=== PATIENT | female | born 1970 | race Caucasian/White ===

== ENCOUNTER 2023-07-05 07:30 | Day surgery (SDC) | payer OTHER, SELFPAY ==
[2023-05-28 10:52] VITALS: BMI 38.8
[2023-06-19 09:57] VITALS: BMI 38.7
[2023-07-05 08:37] VITALS: BP 137/92; PULSE 78; RESP 16; TEMP 36.6; O2SAT 100; BMI 37.8
--- NOTE | 2023-07-05 08:47 | PM.HPGS ---
History of Present Illness History of Present Illness Consent: Risks, benefits, and alternatives have been discussed and questions answered. Patient agrees to proceed with procedure. Chief complaint: Neoplasm Screening Narrative: Ijeoma Davidson is a 52 year old female presents for screening colonoscopy. Patient's current weight appetite and bowel movements are normal. Patient denies abdominal pain. Family history is significant her father had colon polyps. Review of Systems Review of Systems: Review of systems noncontributory. [facility] Past Medical History Medical History (Updated 07/05/23 @ 08:49 by Patrick Hobbs MD) Cramping of hands Dyslipidemia Ecchymosis Edema Ganglion cyst Meningioma Surgical History Surgical History (Updated 05/25/23 @ 08:52 by Julia Duarte PA-C) History of History of foot surgery right 2020 History of myomectomy Family History Family History Mother Diabetes mellitus Hypertension Cerebrovascular accident Sibling Hypertension Grandparent Colon cancer Social History Social History Smoking status: Never smoker Alcohol intake: current Drinks per week: 0 Alcohol use details: ONE A MONTH Substance use: never Substance use type: does not use Lack of Transportation: No Lack of Food: Never True Current Housing: I Have Housing Concerned About Future Housing: No Difficulty Paying Gas/Electric Bills: No Difficulty Paying for Meds: No Currently Unemployed: No Difficulty w/ Childcare or Family Care: No Living arrangements: with family Occupation/Education: occupation Gender identity (if verbalized by the patient): Female Sexual Orientation (if Verbalized by the Patient): Straight or Heterosexual Spiritual care concerns: No Meds Home Medications and Allergies Home Medications Medication Instructions Recorded Confirmed Type ascorbic acid (vitamin C) 250 mg 250 mg PO DAILY 03/13/22 07/05/23 History tablet cholecalciferol (vitamin D3) 50 50 mcg PO DAILY 03/13/22 07/05/23 History mcg (2,000 unit) capsule mecobalamin (vitamin B12) 1,000 2,000 mcg PO DAILY 03/13/22 07/05/23 History mcg chewable tablet fenofibric acid (choline) 135 mg 135 mg PO QHS #90 caps 01/26/24 03/07/24 Rx capsule,delayed release (Trilipix) omeprazole 20 mg capsule,delayed 20 mg PO DAILY #90 caps 05/25/23 07/05/23 Rx release furosemide 20 mg tablet (Lasix) 20 mg PO QAM PRN edema #90 tabs 06/18/23 07/05/23 Rx Allergies Allergy/AdvReac Type Severity Reaction Status Date / Time No Known Allergies Allergy Mild Verified 07/05/23 08:32 Vital Signs Vital Signs - 24 hr 07/05/23 08:37 Temperature 97.8 F Pulse Rate 78 Respiratory Rate 16 Blood Pressure 137/92 H Pulse Oximetry 100 Oxygen Delivery Room Air Exam Narrative: Physical exam reveals patient to be alert. Vital signs stable. HEENT exam is unremarkable. Patient is anicteric. Lungs are clear to auscultation and percussion. Heart is without murmur or extra sounds. Abdomen bowel sounds are present soft nontender with no hepatosplenomegaly. Digital external rectal exam is normal. Assessment and Plan Assessment and plan (1) Encounter for screening colonoscopy: Code(s): Z12.11 - Encounter for screening for malignant neoplasm of colon Status: Acute Assessment and Plan: Neoplasia screening advised because of age. Further recommendations may be given after endoscopy. (2) Family history of colonic polyps: Code(s): Z83.719 - Family history of colon polyps, unspecified Status: Acute Assessment and Plan: Patient's father has colonoscopy at 5-7 year intervals given this history.
[2023-07-05] MEDS: LACTATED RINGERS 1,000 ML 150 ML IV CONT (08:51)
--- NOTE | 2023-07-05 08:59 | WPDANESEPPF ---
Anes - Initial Pre Proc Eval Procedure: Operation Date: 07/05/23 10:00 Proposed Procedures p Screening Colonoscopy - Patrick Hobbs MD Date/Time: 07/05/23 08:59 Surgeon: Patrick Hobbs MD Pre Op Diagnosis: Neoplasm Screening Patient Data Age: 52 Gender: F Height: 1.8 m Weight: 122.8 kg Last Vital Signs Temp 36.6 C 07/05/23 08:37 Pulse 78 07/05/23 08:37 Resp 16 07/05/23 08:37 BP 137/92 H 07/05/23 08:37 Pulse Ox 100 07/05/23 08:37 O2 Del Method Room Air 07/05/23 08:37 Allergies Allergy/AdvReac Type Severity Reaction Status Date / Time No Known Allergies Allergy Mild Verified 07/05/23 08:32 Home Medications Medication Instructions Recorded Confirmed Type ascorbic acid (vitamin C) 250 mg 250 mg PO DAILY 03/13/22 07/05/23 History tablet cholecalciferol (vitamin D3) 50 50 mcg PO DAILY 03/13/22 07/05/23 History mcg (2,000 unit) capsule mecobalamin (vitamin B12) 1,000 2,000 mcg PO DAILY 03/13/22 07/05/23 History mcg chewable tablet fenofibric acid (choline) 135 mg 135 mg PO QHS #90 caps 05/25/23 07/05/23 Rx capsule,delayed release (Trilipix) omeprazole 20 mg capsule,delayed 20 mg PO DAILY #90 caps 05/25/23 07/05/23 Rx release furosemide 20 mg tablet (Lasix) 20 mg PO QAM PRN edema #90 tabs 06/18/23 07/05/23 Rx Patient hx anesthesia problems: none Family hx anesthesia problems: none Results Review: All pre-operative results and documents have been reviewed as part of the pre-operative evaluation. [facility] Past Medical History Medical History (Updated 07/05/23 @ 08:59 by Ernie Douglas MD) Cramping of hands Dyslipidemia Ecchymosis Edema Ganglion cyst Hyperlipidemia Meningioma Obesity Surgical History Surgical History History of History of foot surgery right 2020 History of myomectomy Family History Family History Mother Diabetes mellitus Hypertension Cerebrovascular accident Sibling Hypertension Grandparent Colon cancer Social History Social History Smoking status: Never smoker Alcohol intake: current Drinks per week: 0 Alcohol use details: ONE A MONTH Substance use: never Substance use type: does not use Lack of Transportation: No Lack of Food: Never True Current Housing: I Have Housing Concerned About Future Housing: No Difficulty Paying Gas/Electric Bills: No Difficulty Paying for Meds: No Currently Unemployed: No Difficulty w/ Childcare or Family Care: No Living arrangements: with family Occupation/Education: occupation Gender identity (if verbalized by the patient): Female Sexual Orientation (if Verbalized by the Patient): Straight or Heterosexual Spiritual care concerns: No Anes - Eval Final PreProcedure Day of Procedure 07/05/23 08:59 Patient weight: obese Heart: regular rate and rhythm Lungs: clear to auscultation Airway: Mallampati scale class II Neurological: alert and oriented Last oral intake: >/= 8 hours ASA classification: II Emergent: no Anesthetic plan: proceed Anesthesia type and monitoring: general GIVS and standard monitoring Results Review: All pre-operative results and documents have been reviewed as part of the pre-operative evaluation. Informed Consent: The patient's anesthetic plan and its attendant risks and benefits were discussed with the patient/family/POA. Questions were solicited and answers provided to the satisfaction of the patient/family/POA.
[2023-07-05 10:12] VITALS: BP 96/64; PULSE 77; RESP 16; O2SAT 100
[2023-07-05 10:22] VITALS: BP 110/69; PULSE 75; RESP 20; O2SAT 100
--- NOTE | 2023-07-05 10:28 | WPDANESPN ---
Anes - Prog Note Post-Op Date/Time: 07/05/23 10:28 Cardiovascular status: normal Respiratory status: normal Airway patency: baseline Mental status: baseline Post-Op hydration status: normal Vital Signs: Last Vital Signs Temp 36.6 C 07/05/23 08:37 Pulse 77 07/05/23 10:12 Resp 16 07/05/23 10:12 BP 96/64 L 07/05/23 10:12 Pulse Ox 100 07/05/23 10:12 O2 Del Method Room Air 07/05/23 10:12 Pain Score (VAS): 0/10 I/O: Intake & Output 07/04/23 07/05/23 07/05/23 23:59 07:59 15:59 Intake Total 500 Balance 500 Patient Feedback: Patient satisfied with anesthetic care.
[2023-07-05 10:32] VITALS: BP 128/74; PULSE 73; RESP 20; O2SAT 100
== END 2023-07-05 10:43 | disposition home or self-care (01) ==
PROVIDERS: PCP Physician Assistant Medical; Visit Provider Internal Medicine Gastroenterology
PROC: 0DJD8ZZ Inspection of Lower Intestinal Tract, Via Natural or Artificial Opening Endoscopic (ICD-10-PCS; CPT 45378; principal; 2023-07-05 10:00)
DX: Z12.11 Encounter for screening for malignant neoplasm of colon (principal); K57.30 Diverticulosis of large intestine without perforation or abscess without bleeding; K64.8 Other hemorrhoids; Z83.718 Family history of other colon polyps
CPT/HCPCS: 45378